=== PATIENT | male | born 1970 | race Caucasian/White ===

== ENCOUNTER 2020-11-19 07:28 | Outpatient (CLI) | payer BC ==
[2020-11-19 15:29] LABS: INR 1.1 (0.8-1.2); PT - PROTHROMBIN TIME 12.1 secs (9.9-12.6)
== END 2020-11-19 07:29 | disposition home or self-care (01) ==
LOC: LAB.S 07:28
PROVIDERS: ATTEND Internal Medicine
DX: I25.118 Atherosclerotic heart disease of native coronary artery with other forms of angina pectoris (principal); R94.39 Abnormal result of other cardiovascular function study; I63.9 Cerebral infarction, unspecified; Q21.1 Atrial septal defect; I10 Essential (primary) hypertension
CPT/HCPCS: 36415; 85610

== ENCOUNTER 2021-05-04 08:00 | Outpatient (CLI) | payer BC ==
--- NOTE | 2021-05-04 14:27 | XRAY Report ---
PROCEDURE: Chest 2 View X-Ray INDICATIONS: COUGH TECHNIQUE: 2 view(s) of the chest. COMPARISON: None. FINDINGS: Surgical changes and devices: An apparent cardiac closure device is partially seen. Lungs and pleura: An incomplete inspiratory result is noted, with low lung volumes and crowding of t he vascular markings. No focal infiltrates are seen. No large pneumothorax or large pleural effusion can be seen. Mediastinum: Mediastinal contours are normal. Heart size is normal. Bones and chest wall: No suspicious bony abnormalities. Age-appropriate degenerative changes are see n. There is accentuated thoracic kyphosis. Soft tissues appear unremarkable. IMPRESSION: Low lung volumes, without a focal infiltrate seen. Reviewed by: Ted Euceda MD on 05/04/2021 1:26 PM [facility] Approved by: Ted Euceda MD on 05/04/2021 1:26 PM [facility] Station ID: [id number]
== END 2021-05-04 23:59 | disposition home or self-care (01) ==
LOC: DI.S 08:00
PROVIDERS: ATTEND Physician Assistant Medical
DX: R05 Cough (principal); Z20.822 Contact with and (suspected) exposure to COVID-19

== ENCOUNTER 2021-07-19 11:59 | Emergency (ER) | payer BC ==
[2021-07-19 12:41] LABS: BASOPHILS % (AUTO) 0.2 %; EOSINOPHILS % (AUTO) 0.2 %; HCT - HEMATOCRIT 42.8 % (42.0-52.0); HGB - HEMOGLOBIN 14.3 g/dL (14.0-18.0); LYMPHOCYTES # (AUTO) 2.1 10^3/uL (1.5-3.5); LYMPHOCYTES % (AUTO) 20.4 %; MEAN CORPUSCULAR HEMOGLOBIN 29.4 pg (27.0-31.0); MEAN CORPUSCULAR HGB CONC 33.4 g/dL (32.0-36.0); MEAN CORPUSCULAR VOLUME 87.9 fL (80.0-94.0); MEAN PLATELET VOLUME 10.4 fL (7.4-11.4); MONOCYTES # (AUTO) 0.7 10^3/uL (0.0-1.0); MONOCYTES % (AUTO) 7.4 %; NEUTROPHILS # (AUTO) 7.2 10^3/uL (1.5-6.6); NEUTROPHILS % (AUTO) 71.5 %; PLT - PLATELET COUNT 282 10^3/uL (130-450); RED BLOOD COUNT 4.87 10^6/uL (4.70-6.10); RED CELL DISTRIBUTION WIDTH 12.1 % (12.0-15.0); WHITE BLOOD COUNT 10.1 x10^3/uL (4.8-10.8)
--- NOTE | 2021-07-19 12:47 | XRAY Report ---
PROCEDURE: Chest 1 View X-Ray INDICATIONS: Chest pain TECHNIQUE: One view of the chest was acquired. COMPARISON: 05/04/2021 FINDINGS: Surgical changes and devices: None. Lungs and pleura: No pleural effusions or pneumothorax. Lungs are clear. Mediastinum: Mediastinal contours appear normal. Heart size is normal. Bones and chest wall: No suspicious bony lesions. Overlying soft tissues appear unremarkable. IMPRESSION: Portable chest within normal limits for age. Reviewed by: Ted Euceda MD on 07/19/2021 11:45 AM [facility] Approved by: Ted Euceda MD on 07/19/2021 11:45 AM [facility] Station ID: [id number]
[2021-07-19 13:03] LABS: ALBUMIN 4.7 g/dL (3.2-5.5); ALBUMIN/GLOBULIN RATIO 1.6 (1.0-2.2); BILIRUBIN,TOTAL 0.4 mg/dL (0.2-1.0); CALCIUM 9.5 mg/dL (8.5-10.3); CREATININE 1.1 mg/dL (0.6-1.2); POTASSIUM 4.2 mmol/L (3.5-5.0); TOTAL PROTEIN 7.6 g/dL (6.7-8.2)
--- NOTE | 2021-07-19 13:11 | ED Physician Documentation ---
History of Present Illness - Stated complaint Stated Complaint: CHEST PX/VOMITING - Chief complaint Chief Complaint: Cardiac - Additonal information Additional information: 51-year-old male who has a past medical history most significant for hypertension and coronary artery disease status post stenting x5 presents to the emergency department for evaluation of chest pain nausea and vomiting. He last had cardiac stents placed in November [address] Bernal at [facility]. This gentleman reports that for the last 3 to 4 weeks he has had dyspnea on exertion as well as some occasional nausea. This morning he was trying to when arise a boat motor and developed chest pain after pulling multiple times to attempt to start the motor. He then vomited. Thus he presents to the emergency department. He reports the chest pain as a pressure-like sensation that radiates to his back between the shoulder blades. He does have follow-up scheduled with Dr. Akers 07/25/21 Patient is free of chest pain at this time. He did not take nitroglycerin prior to arrival. Meds: Plavix, aspirin, metoprolol, losartan, atorvastatin, as needed nitroglycerin. Review of Systems Constitutional: denies: Fever, Chills Eyes: reports: Reviewed and negative Nose: reports: Reviewed and negative Throat: reports: Reviewed and negative Cardiac: reports: Chest pain / pressure. denies: Palpitations, Pedal edema, Calf pain Respiratory: reports: Dyspnea. denies: Cough, Hemoptysis, Wheezing GI: reports: Reviewed and negative : reports: Reviewed and negative Skin: reports: Reviewed and negative Musculoskeletal: reports: Reviewed and negative PD PAST MEDICAL HISTORY - Past Medical History Past Medical History: Yes Cardiovascular: Hypertension, High cholesterol, Coronary artery disease Respiratory: None Neuro: CVA Endocrine/Autoimmune: Other GI: None : None HEENT: None Psych: Depression Musculoskeletal: None Derm: None Other Past Medical History: Lyme disease. Pre diabetic - Past Surgical History Past Surgical History: Yes Ortho: Other Cardiovascular: Coronary stent - Present Medications Home Medications: Ambulatory Orders Medication Instructions Recorded Confirmed Aspirin [[place] Aspirin] 81 mg PO DAILY 07/19/21 07/19/21 Atorvastatin Calcium [Lipitor] 80 mg PO DAILY PM 07/19/21 07/19/21 Clopidogrel [Plavix] 75 mg PO DAILY 07/19/21 07/19/21 Fluoxetine HCl [Prozac] 40 mg PO DAILY 07/19/21 07/19/21 Losartan [Cozaar] 25 mg PO DAILY PM 07/19/21 07/19/21 Losartan [Cozaar] 50 mg PO DAILY 07/19/21 07/19/21 Metoprolol Succinate [Toprol Xl] 0.5 tab PO DAILY 07/19/21 07/19/21 Nitroglycerin [Nitrostat] 0.4 mg SL Q5MIN PRN 07/19/21 07/19/21 Pantoprazole [Protonix] 40 mg PO DAILY 07/19/21 07/19/21 amLODIPine [Norvasc] 2.5 mg PO DAILY 07/19/21 07/19/21 - Allergies Allergies/Adverse Reactions: Allergies Allergy/AdvReac Type Severity Reaction Status Date / Time No Known Drug Allergies Allergy Verified 07/19/21 12:13 - Social History Does the pt smoke?: No Smoking Status: Never smoker Does the pt drink ETOH?: Yes ETOH Use: Liquor Does the pt have substance abuse?: No - Immunizations Immunizations are current?: Yes PD ED PE NORMAL - General General: Alert and oriented X 3, No acute distress - HEENT HEENT: PERRL - Neck Neck: Supple, no meningeal sign - Cardiac Cardiac: RRR, No murmur, No gallop - Respiratory Respiratory: No respiratory distress, Clear bilaterally - Abdomen Abdomen: Normal bowel sounds, Soft, Non tender - Back Back: No CVA TTP - Derm Derm: Normal color, Warm and dry, No rash - Extremities Extremities: No deformity - Neuro Neuro: Alert and oriented X 3 Results - Vitals Vitals: Vital Signs - 24 hr 07/19/21 07/19/21 07/19/21 12:13 12:36 13:00 Temperature 36.5 C Heart Rate 71 64 67 Respiratory 16 18 15 Rate Blood Pressure 143/86 H 141/93 H 139/86 H O2 Saturation 100 100 99 07/19/21 07/19/21 07/19/21 13:30 13:37 14:00 Temperature Heart Rate 62 66 66 Respiratory 24 20 14 Rate Blood Pressure 142/77 H 142/71 H 150/94 H O2 Saturation 100 100 100 07/19/21 07/19/21 07/19/21 14:30 15:00 15:30 Temperature Heart Rate 70 68 65 Respiratory 15 16 17 Rate Blood Pressure 143/82 H 139/89 H 141/91 H O2 Saturation 100 99 100 07/19/21 07/19/21 07/19/21 16:00 16:30 16:45 Temperature Heart Rate 63 62 Respiratory 12 13 Rate Blood Pressure 144/103 H 156/96 H 131/82 H O2 Saturation 100 100 Oxygen O2 Source Room air - EKG (time done) 1208 Rate: Rate (enter#) (68) Rhythm: NSR [place]: Normal Intervals: Normal [place] QRS: Normal Ischemia: Normal ST segments Compare to prior EKG: Old EKG unavailable Computer interpretation: Agree with computer - Labs Labs: Laboratory Tests 07/19/21 07/19/21 07/19/21 12:35 12:35 12:35 WBC 10.1 RBC 4.87 Hgb 14.3 Hct 42.8 MCV 87.9 MCH 29.4 MCHC 33.4 RDW 12.1 Plt Count 282 MPV 10.4 Neut # (Auto) 7.2 H Lymph # (Auto) 2.1 [place] # (Auto) 0.7 Eos # (Auto) 0.0 Baso # (Auto) 0.0 Absolute Nucleated RBC 0.00 Nucleated RBC % 0.0 Sodium 142 Potassium 4.2 Chloride 107 Carbon Dioxide 24 Anion Gap 11.0 BUN 15 Creatinine 1.1 Estimated GFR (MDRD) 70 L Glucose 130 H Calcium 9.5 Total Bilirubin 0.4 AST 37 ALT 60 Alkaline Phosphatase 94 Troponin I High Sens 142.3 H* Total Protein 7.6 Albumin 4.7 Globulin 2.9 Albumin/Globulin Ratio 1.6 Lipase 51 Nasal Adenovirus (PCR) Nasal B. parapertussis DNA (PCR) Nasal Coronavir 229E PCR Nasal Coronavir HKU1 PCR Nasal Coronavir NL63 PCR Nasal Coronavir OC43 PCR Nasal Enterovir/Rhinovir PCR Nasal Influenza B PCR Nasal Influenza A PCR Nasal Parainfluen 1 PCR Nasal Parainfluen 2 PCR Nasal Parainfluen 3 PCR Nasal Parainfluen 4 PCR Nasal RSV (PCR) Nasal B.pertussis DNA PCR Nasal C.pneumoniae (PCR) José Miguel Human Metapneumo PCR Nasal M.pneumoniae (PCR) Nasal SARS-CoV-2 (PCR) 07/19/21 07/19/21 15:13 16:05 WBC RBC Hgb Hct MCV MCH MCHC RDW Plt Count MPV Neut # (Auto) Lymph # (Auto) [place] # (Auto) Eos # (Auto) Baso # (Auto) Absolute Nucleated RBC Nucleated RBC % Sodium Potassium Chloride Carbon Dioxide Anion Gap BUN Creatinine Estimated GFR (MDRD) Glucose Calcium Total Bilirubin AST ALT Alkaline Phosphatase Troponin I High Sens 903.2 H* Total Protein Albumin Globulin Albumin/Globulin Ratio Lipase Nasal Adenovirus (PCR) NOT DETECTED Nasal B. parapertussis DNA (PCR) NOT DETECTED Nasal Coronavir 229E PCR NOT DETECTED Nasal Coronavir HKU1 PCR NOT DETECTED Nasal Coronavir NL63 PCR NOT DETECTED Nasal Coronavir OC43 PCR NOT DETECTED Nasal Enterovir/Rhinovir PCR NOT DETECTED Nasal Influenza B PCR NOT DETECTED Nasal Influenza A PCR NOT DETECTED Nasal Parainfluen 1 PCR NOT DETECTED Nasal Parainfluen 2 PCR NOT DETECTED Nasal Parainfluen 3 PCR NOT DETECTED Nasal Parainfluen 4 PCR NOT DETECTED Nasal RSV (PCR) NOT DETECTED Nasal B.pertussis DNA PCR NOT DETECTED Nasal C.pneumoniae (PCR) NOT DETECTED José Miguel Human Metapneumo PCR NOT DETECTED Nasal M.pneumoniae (PCR) NOT DETECTED Nasal SARS-CoV-2 (PCR) NOT DETECTED PD MEDICAL DECISION MAKING - ED course Complexity details: reviewed results, re-evaluated patient, d/w patient, d/w continuous improvement consultant (Kiko) ED course: 51-year-old male who has a history of coronary artery disease status post stenting x5 presents emergency department for evaluation of chest pain. Screening EKG is sinus rhythm without ischemic changes however initial high- sensitivity troponin elevated at 142. Patient was started on a heparin infusion. 1415 I was able to speak with the on-call dynamics ax consultant Dr. Hoover at [facility] who agrees that the patient should be transferred emergently for further evaluation of his NSTEMI. Likely will require coronary artery angiography. He requested the patient remain on a heparin infusion as well as his statin. Request blood pressure control for goal under 140. Labetalol has been ordered. 1600: Repeat troponin > 900. I have spoken with Dr. Ramos who has accepted the pt for further evaluation of his NSTEMI. Pt remains hemodynamically stable on heparin. No chest pain at present. BP well controlled. COBRA paperwork filled out. Patient will be transported via ALS. Patient has been updated to plan of care. Departure - Departure Disposition: 02 Transfer Acute Care Hosp Clinical Impression: NSTEMI (non-ST elevated myocardial infarction), Unstable angina
[2021-07-19] MEDS ORDERED: HEPARIN 25000UNITS/500ML (D5W) 25,000 UNIT/500 ML BAG IV SCH (14:00)
[2021-07-19] MEDS ORDERED: LABETALOL 20 MG/4 ML SYRINGE IVP STA ×2 (14:25→16:38)
[2021-07-19] MEDS ORDERED: NITROGLYCERIN SL 0.4 MG TABLET SL STA (16:30)
[2021-07-19 16:56] LABS: B. PARAPERTUSSIS- RESP PCR PAN NOT DETECTED; B. PERTUSSIS- RESP PCR PANEL NOT DETECTED; C. PNEUMONIAE- RESP PCR PANEL NOT DETECTED; CORONAVIRUS 229E-RESP PCR NOT DETECTED; CORONAVIRUS HKU1-RESP PCR NOT DETECTED; CORONAVIRUS NL63-RESP PCR NOT DETECTED; CORONAVIRUS OC43-RESP PCR NOT DETECTED; HUMAN METAPNEUMOVIRUS NOT DETECTED; INFLUENZA A- RESP PCR PANEL NOT DETECTED; INFLUENZA B - RESP PCR PANEL NOT DETECTED; M. PNEUMONIAE- RESP PCR PANEL NOT DETECTED; PARAINFLUENZA VIRUS 1 NOT DETECTED; PARAINFLUENZA VIRUS 2 NOT DETECTED; PARAINFLUENZA VIRUS 3 NOT DETECTED; PARAINFLUENZA VIRUS 4 NOT DETECTED; RHINOVIRUS/ENTEROVIRUS NOT DETECTED; RSV- RESP PCR PANEL NOT DETECTED; SARS-CoV-2 -RESP PCR PANEL NOT DETECTED
[2021-07-19 17:07] VITALS: BP 146/95
== END 2021-07-19 17:13 | disposition short-term general hospital (02) ==
LOC: ED 11:59
DX: I21.4 Non-ST elevation (NSTEMI) myocardial infarction (principal); I25.110 Atherosclerotic heart disease of native coronary artery with unstable angina pectoris; Z95.5 Presence of coronary angioplasty implant and graft; I10 Essential (primary) hypertension; Z20.822 Contact with and (suspected) exposure to COVID-19; Z79.02 Long term (current) use of antithrombotics/antiplatelets; Z79.82 Long term (current) use of aspirin
CPT/HCPCS: 0202U; 36415; 71045; 80053; 83690; 84484; 85025; 93005; 96365; 96366; 96375; 96376; 99284; 99285; A9270

== ENCOUNTER 2021-07-19 17:01 | Outpatient (CLI) | payer BC | END 2021-07-19 17:02 | disposition short-term general hospital (02) | LOC: EMS 17:01 | PROVIDERS: ATTEND Radiology Diagnostic Radiology | DX: I21.4 Non-ST elevation (NSTEMI) myocardial infarction (principal); I10 Essential (primary) hypertension; I25.10 Atherosclerotic heart disease of native coronary artery without angina pectoris | CPT/HCPCS: A0425; A0426 ==

== ENCOUNTER 2021-09-24 11:21 | Outpatient (CLI) | payer BC ==
[2021-09-24 14:49] LABS: BASOPHILS % (AUTO) 0.3 %; EOSINOPHILS # (AUTO) 0.2 10^3/uL (0.0-0.7); EOSINOPHILS % (AUTO) 2.7 %; HCT - HEMATOCRIT 29.7 % (42.0-52.0); HGB - HEMOGLOBIN 9.2 g/dL (14.0-18.0); LYMPHOCYTES % (AUTO) 26.7 %; MEAN CORPUSCULAR HEMOGLOBIN 27.9 pg (27.0-31.0); MEAN PLATELET VOLUME 10.8 fL (7.4-11.4); MONOCYTES # (AUTO) 0.7 10^3/uL (0.0-1.0); MONOCYTES % (AUTO) 8.8 %; NEUTROPHILS # (AUTO) 4.6 10^3/uL (1.5-6.6); NEUTROPHILS % (AUTO) 61.1 %; PLT - PLATELET COUNT 344 10^3/uL (130-450); RED CELL DISTRIBUTION WIDTH 13.4 % (12.0-15.0); WHITE BLOOD COUNT 7.5 x10^3/uL (4.8-10.8)
[2021-09-24 15:22] LABS: ALBUMIN 3.8 g/dL (3.2-5.5); ALBUMIN/GLOBULIN RATIO 1.3 (1.0-2.2); BILIRUBIN,TOTAL 0.3 mg/dL (0.2-1.0); CALCIUM 8.7 mg/dL (8.5-10.3); CREATININE 1.1 mg/dL (0.6-1.2); POTASSIUM 4.2 mmol/L (3.5-5.0); TOTAL PROTEIN 6.8 g/dL (6.7-8.2)
== END 2021-09-24 11:22 | disposition home or self-care (01) ==
LOC: LAB.S 11:21
PROVIDERS: ATTEND Physician Assistant
DX: K92.2 Gastrointestinal hemorrhage, unspecified (principal)
CPT/HCPCS: 36415; 80053; 82728; 83540; 84466; 85025

== ENCOUNTER 2021-10-22 19:29 | Emergency (ER) | payer BC ==
[2021-10-22] MEDS ORDERED: ASPIRIN CHEW 81 MG TABLET PO STA (19:49)
[2021-10-22 19:52] LABS: BASOPHILS % (AUTO) 0.2 %; HCT - HEMATOCRIT 38.9 % (42.0-52.0); HGB - HEMOGLOBIN 12.3 g/dL (14.0-18.0); LYMPHOCYTES # (AUTO) 1.8 10^3/uL (1.5-3.5); LYMPHOCYTES % (AUTO) 14.7 %; MEAN CORPUSCULAR HEMOGLOBIN 25.7 pg (27.0-31.0); MEAN CORPUSCULAR HGB CONC 31.6 g/dL (32.0-36.0); MEAN CORPUSCULAR VOLUME 81.2 fL (80.0-94.0); MEAN PLATELET VOLUME 9.7 fL (7.4-11.4); MONOCYTES # (AUTO) 0.9 10^3/uL (0.0-1.0); MONOCYTES % (AUTO) 7.2 %; NEUTROPHILS # (AUTO) 9.5 10^3/uL (1.5-6.6); NEUTROPHILS % (AUTO) 77.6 %; PLT - PLATELET COUNT 415 10^3/uL (130-450); RED BLOOD COUNT 4.79 10^6/uL (4.70-6.10); RED CELL DISTRIBUTION WIDTH 13.2 % (12.0-15.0); WHITE BLOOD COUNT 12.3 x10^3/uL (4.8-10.8)
--- NOTE | 2021-10-22 19:52 | ED Physician Documentation ---
History of Present Illness - Stated complaint Stated Complaint: CP/VOMIT - Chief complaint Chief Complaint: Cardiac - History obtained from History obtained from: Patient - Additonal information Additional information: 51-year-old man with past medical history of coronary artery bypass graft, stents most recent July 2021, also with postoperative paroxysmal A. fib on xarelto, complicated by GI bleed with admission to [facility] September 11 to , not currently on AC, p/w sudden onset 5/10 crushing substernal CP a/w about 20 episodes of nbnb n/v today at 1700. patient called his vending machine attendant Dr. Akers who told him to come to ED. Note patient was seen by Dr. Akers this Wednesday and metoprolol was lowered from 50bid to 25/50 because he had been having nausea and malaise for the past few weeks. patient endorsing 1/10 chest discomfort at present. nausea resolved. denies soa, dizziness, back pain, cough, fever, diaphoresis. Review of Systems Ten Systems: 10 systems reviewed and negative Constitutional: denies: Fever, Chills Throat: denies: Sore throat Cardiac: reports: Chest pain / pressure, Palpitations Respiratory: reports: Dyspnea. denies: Cough GI: reports: Nausea, Vomiting PD PAST MEDICAL HISTORY - Past Medical History Cardiovascular: Hypertension, High cholesterol, Coronary artery disease Respiratory: None Neuro: CVA Endocrine/Autoimmune: Other GI: None : None HEENT: None Psych: Depression Musculoskeletal: None Derm: None - Past Surgical History Past Surgical History: Yes Ortho: Other Cardiovascular: Coronary stent - Present Medications Home Medications: Ambulatory Orders Medication Instructions Recorded Confirmed Aspirin [[place] Aspirin] 81 mg PO DAILY 07/19/21 07/19/21 Atorvastatin Calcium [Lipitor] 80 mg PO DAILY PM 07/19/21 07/19/21 Clopidogrel [Plavix] 75 mg PO DAILY 07/19/21 07/19/21 Fluoxetine HCl [Prozac] 40 mg PO DAILY 07/19/21 07/19/21 Losartan [Cozaar] 25 mg PO DAILY PM 07/19/21 07/19/21 Losartan [Cozaar] 50 mg PO DAILY 07/19/21 07/19/21 Metoprolol Succinate [Toprol Xl] 0.5 tab PO DAILY 07/19/21 07/19/21 Nitroglycerin [Nitrostat] 0.4 mg SL Q5MIN PRN 07/19/21 07/19/21 Pantoprazole [Protonix] 40 mg PO DAILY 07/19/21 07/19/21 amLODIPine [Norvasc] 2.5 mg PO DAILY 07/19/21 07/19/21 - Allergies Allergies/Adverse Reactions: Allergies Allergy/AdvReac Type Severity Reaction Status Date / Time No Known Drug Allergies Allergy Verified 10/22/21 19:33 - Social History Does the pt smoke?: No Smoking Status: Never smoker Does the pt drink ETOH?: Yes Does the pt have substance abuse?: No - Immunizations Immunizations are current?: Yes PD ED PE NORMAL - Vitals Vital signs reviewed: Yes - General General: Alert and oriented X 3, No acute distress, Well developed/nourished - HEENT HEENT: Atraumatic, PERRL, EOMI - Neck Neck: Supple, no meningeal sign - Cardiac Cardiac: RRR - Respiratory Respiratory: No respiratory distress, Clear bilaterally - Abdomen Abdomen: Non tender, Non distended - Back Back: No CVA TTP - Derm Derm: Normal color, Warm and dry - Extremities Extremities: No deformity, No edema - Neuro Neuro: Alert and oriented X 3, No motor deficit, No sensory deficit - Psych Psych: Normal mood, Normal affect Results - Vitals Vitals: Vital Signs - 24 hr 10/22/21 10/22/21 10/22/21 19:33 19:44 20:22 Temperature 36.5 C Heart Rate 75 110 H 73 Respiratory 16 17 12 Rate Blood Pressure 119/73 151/71 H 136/84 H O2 Saturation 100 100 99 10/22/21 10/22/21 10/22/21 20:30 21:30 22:00 Temperature Heart Rate 69 69 61 Respiratory 18 16 16 Rate Blood Pressure 136/84 H 118/65 109/76 O2 Saturation 99 98 98 10/22/21 10/22/21 10/22/21 22:48 23:07 23:39 Temperature Heart Rate 57 L 63 59 L Respiratory 11 L 10 L 16 Rate Blood Pressure 113/71 118/70 122/77 O2 Saturation 98 97 97 10/23/21 10/23/21 10/23/21 00:14 00:39 01:12 Temperature Heart Rate 57 L 56 L 67 Respiratory 20 12 12 Rate Blood Pressure 109/74 O2 Saturation 97 96 97 10/23/21 10/23/21 10/23/21 01:28 01:31 01:46 Temperature Heart Rate 57 L 55 L 55 L Respiratory 16 12 14 Rate Blood Pressure 121/68 107/68 112/64 O2 Saturation 97 97 97 10/23/21 10/23/21 02:02 02:39 Temperature Heart Rate 52 L 54 L Respiratory 14 14 Rate Blood Pressure 118/73 110/63 O2 Saturation 96 98 Oxygen O2 Source Room air - EKG (time done) 1929 Rate: Rate (enter#) (67) Rhythm: NSR Intervals: Normal [place] QRS: Normal Ischemia: Other (minimal criteria for STD in v4-v6 with minimal HIRAL in aVR and lead III) 1955 Rate: Rate (enter#) (114) Rhythm: Atrial fibrillation Ischemia: Other (<2mm STD in leads v2-v6. ) 2012 Rate: Rate (enter#) (67) Rhythm: NSR Ischemia: Other (persistent STD in v2-v6 <2mm. minimal HIRAL lead III unchanged from first ekg) - Labs Labs: Laboratory Tests 10/22/21 10/22/21 10/22/21 00:03 19:45 19:45 WBC 12.3 H RBC 4.79 Hgb 12.3 L Hct 38.9 L MCV 81.2 MCH 25.7 L MCHC 31.6 L RDW 13.2 Plt Count 415 MPV 9.7 Neut # (Auto) 9.5 H Lymph # (Auto) 1.8 [place] # (Auto) 0.9 Eos # (Auto) 0.0 Baso # (Auto) 0.0 Absolute Nucleated RBC 0.00 Nucleated RBC % 0.0 PT INR APTT Sodium 139 Potassium 3.7 Chloride 101 Carbon Dioxide 25 Anion Gap 13.0 BUN 21 H Creatinine 1.3 H Estimated GFR (MDRD) 58 L Glucose 128 H Calcium 9.5 Total Bilirubin 0.4 AST 24 ALT 31 Alkaline Phosphatase 125 H Troponin I High Sens 1518.8 H* Total Protein 7.8 Albumin 4.1 Globulin 3.7 Albumin/Globulin Ratio 1.1 Lipase 41 Nasal Adenovirus (PCR) Nasal B. parapertussis DNA (PCR) Nasal Coronavir 229E PCR Nasal Coronavir HKU1 PCR Nasal Coronavir NL63 PCR Nasal Coronavir OC43 PCR Nasal Enterovir/Rhinovir PCR Nasal Influenza B PCR Nasal Influenza A PCR Nasal Parainfluen 1 PCR Nasal Parainfluen 2 PCR Nasal Parainfluen 3 PCR Nasal Parainfluen 4 PCR Nasal RSV (PCR) Nasal B.pertussis DNA PCR Nasal C.pneumoniae (PCR) José [place] Human Metapneumo PCR Nasal M.pneumoniae (PCR) Nasal SARS-CoV-2 (PCR) 10/22/21 10/22/21 10/22/21 19:45 19:45 20:19 WBC RBC Hgb Hct MCV MCH MCHC RDW Plt Count MPV Neut # (Auto) Lymph # (Auto) [place] # (Auto) Eos # (Auto) Baso # (Auto) Absolute Nucleated RBC Nucleated RBC % PT 11.4 INR 1.0 APTT 31.8 Sodium Potassium Chloride Carbon Dioxide Anion Gap BUN Creatinine Estimated GFR (MDRD) Glucose Calcium Total Bilirubin AST ALT Alkaline Phosphatase Troponin I High Sens 411.8 H* Total Protein Albumin Globulin Albumin/Globulin Ratio Lipase Nasal Adenovirus (PCR) NOT DETECTED Nasal B. parapertussis DNA (PCR) NOT DETECTED Nasal Coronavir 229E PCR NOT DETECTED Nasal Coronavir HKU1 PCR NOT DETECTED Nasal Coronavir NL63 PCR NOT DETECTED Nasal Coronavir OC43 PCR NOT DETECTED Nasal Enterovir/Rhinovir PCR NOT DETECTED Nasal Influenza B PCR NOT DETECTED Nasal Influenza A PCR NOT DETECTED Nasal Parainfluen 1 PCR NOT DETECTED Nasal Parainfluen 2 PCR NOT DETECTED Nasal Parainfluen 3 PCR NOT DETECTED Nasal Parainfluen 4 PCR NOT DETECTED Nasal RSV (PCR) NOT DETECTED Nasal B.pertussis DNA PCR NOT DETECTED Nasal C.pneumoniae (PCR) NOT DETECTED José Miguel Human Metapneumo PCR NOT DETECTED Nasal M.pneumoniae (PCR) NOT DETECTED Nasal SARS-CoV-2 (PCR) NOT DETECTED 10/22/21 21:48 WBC RBC Hgb Hct MCV MCH MCHC RDW Plt Count MPV Neut # (Auto) Lymph # (Auto) [place] # (Auto) Eos # (Auto) Baso # (Auto) Absolute Nucleated RBC Nucleated RBC % PT INR APTT Sodium Potassium Chloride Carbon Dioxide Anion Gap BUN Creatinine Estimated GFR (MDRD) Glucose Calcium Total Bilirubin AST ALT Alkaline Phosphatase Troponin I High Sens 1129.8 H* Total Protein Albumin Globulin Albumin/Globulin Ratio Lipase Nasal Adenovirus (PCR) Nasal B. parapertussis DNA (PCR) Nasal Coronavir 229E PCR Nasal Coronavir HKU1 PCR Nasal Coronavir NL63 PCR Nasal Coronavir OC43 PCR Nasal Enterovir/Rhinovir PCR Nasal Influenza B PCR Nasal Influenza A PCR Nasal Parainfluen 1 PCR Nasal Parainfluen 2 PCR Nasal Parainfluen 3 PCR Nasal Parainfluen 4 PCR Nasal RSV (PCR) Nasal B.pertussis DNA PCR Nasal C.pneumoniae (PCR) José [place] Human Metapneumo PCR Nasal M.pneumoniae (PCR) Nasal SARS-CoV-2 (PCR) PD MEDICAL DECISION MAKING - ED course ED course: 8pm - spoke on the phone with Dr. Akers, patient's personal vending machine attendant regarding concerning history and minimal HIRAL in lead 3 and avR on initial ekg with 1mm STD in V4-v6. sent him the ekgs. he recommended IV metoprolol but then advised to hold off as we were about to give it since patient reverted to NSR. 8:30pm- troponin elevated to 400. d/w vending machine attendant Dr. Akers and sent him all three ekgs as well as prior ekg from July 2021. He states no STEMI but patient should be transferred to hospital with cath capabilities for urgent, not emergent cath. I d/w him and with the patient that due to critical staff shortages/pandemic/covid issues we have had severe issues with transfer. Our [facility] will start to initiate phone calls, starting with [facility] and [facility]. 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 Dr. Akers recommending heparin drip but to hold plavix given recent history of GIB. 8:45pm - d/w patient to update and he is very concerned with idea of transfer to [facility], stating he may refuse transfer given previous poor experience. We discussed that they may have a bed available first thing in the morning and his condition is quite serious and requires urgent transfer. Also discussed that given the pandemic the transfer times for patients have been very prolonged. [facility] is aware and has been calling other hospitals. [facility] declined due to over capacity but stated he can go on outpatient waitlist for cath. [facility] will call other hospitals. d/w transfer center. they are on critical census protocol. [facility] currently has no beds. if patient has urgent need that is only able to be addressed at [facility] they can have me speak with a doctor but full disclosure it will be several days before we can speak with a doctor given that he has no prior connection to [facility]. [facility], [facility], [facility], and [facility] also refusing transfers. 9:30pm - updated patient about transfer situation and he is more open to possible transfer to [facility]. Our CRYPTOGRAPHIC TECHNICIAN is contacting [facility] pending 2nd troponin. 10:30pm - patient with uptrending troponins. d/w [facility] who will assist in coordinating transfers. they are telling us the entire system is shut down. 2am - patient with multiple bradycardic episodes lasting less than a minute at a time dipping down to low 30s, followed by afib RVR in 110s lasting 1-2 minutes then reverting to NSR in 60s. reviewed monitor event rhythm strips and they appear to be sinus bradycardia but we are having trouble getting an ekg since episodes are so quick. patient is asymptomatic, resting comfortably in bed with normal blood pressure during these episodes. d/w vending machine attendant Dr. Akers who is aware. 2:30am - d/w ED physician at [facility] Dr. Nice who accepts patient in transfer. will transfer via life flight. Departure - Departure Disposition: 02 Transfer Acute Care Hosp Clinical Impression: NSTEMI (non-ST elevated myocardial infarction), Elevated troponin, Nausea and vomiting, Paroxysmal A-fib Condition: Stable
[2021-10-22] MEDS ORDERED: METOPROLOL 5 MG/5 ML VIAL IVP STA (20:06)
--- NOTE | 2021-10-22 20:06 | XRAY Report ---
PROCEDURE: Chest 1 View X-Ray INDICATIONS: Chest pain TECHNIQUE: One view of the chest was acquired. COMPARISON: July 19, 2021 FINDINGS: SUPPORT DEVICES: Sternotomy wires are well aligned. LUNGS/PLEURA: No focal consolidation, pleural effusion or space-occupying pneumothorax. MEDIASTINUM: The cardiac silhouette is upper limits of normal. BONES/SOFT TISSUES: No acute abnormality. IMPRESSION: 1.No acute cardiopulmonary abnormality. Reviewed by: Pascual Vega MD on 10/22/2021 8:05 PM [facility] Approved by: Pascual Vega MD on 10/22/2021 8:05 PM [facility] Station ID: [id number]
[2021-10-22 20:09] LABS: ALBUMIN 4.1 g/dL (3.2-5.5); ALBUMIN/GLOBULIN RATIO 1.1 (1.0-2.2); BILIRUBIN,TOTAL 0.4 mg/dL (0.2-1.0); CALCIUM 9.5 mg/dL (8.5-10.3); CREATININE 1.3 mg/dL (0.6-1.2); POTASSIUM 3.7 mmol/L (3.5-5.0); TOTAL PROTEIN 7.8 g/dL (6.7-8.2)
[2021-10-22] MEDS ORDERED: PANTOPRAZOLE 40 MG VIAL IV STA (20:18)
[2021-10-22 20:51] LABS: PT - PROTHROMBIN TIME 11.4 secs (9.9-12.6)
[2021-10-22 20:58] LABS: PARTIAL THROMBOPLASTIN TIME 31.8 secs (24.9-33.3)
[2021-10-22] MEDS ORDERED: HEPARIN 25000UNITS/500ML (D5W) 25,000 UNIT/500 ML BAG IV SCH (21:00)
[2021-10-22 21:32] LABS: B. PARAPERTUSSIS- RESP PCR PAN NOT DETECTED; B. PERTUSSIS- RESP PCR PANEL NOT DETECTED; C. PNEUMONIAE- RESP PCR PANEL NOT DETECTED; CORONAVIRUS 229E-RESP PCR NOT DETECTED; CORONAVIRUS HKU1-RESP PCR NOT DETECTED; CORONAVIRUS NL63-RESP PCR NOT DETECTED; CORONAVIRUS OC43-RESP PCR NOT DETECTED; HUMAN METAPNEUMOVIRUS NOT DETECTED; INFLUENZA A- RESP PCR PANEL NOT DETECTED; INFLUENZA B - RESP PCR PANEL NOT DETECTED; M. PNEUMONIAE- RESP PCR PANEL NOT DETECTED; PARAINFLUENZA VIRUS 1 NOT DETECTED; PARAINFLUENZA VIRUS 2 NOT DETECTED; PARAINFLUENZA VIRUS 3 NOT DETECTED; PARAINFLUENZA VIRUS 4 NOT DETECTED; RHINOVIRUS/ENTEROVIRUS NOT DETECTED; RSV- RESP PCR PANEL NOT DETECTED; SARS-CoV-2 -RESP PCR PANEL NOT DETECTED
[2021-10-23] MEDS ORDERED: NITROGLYCERIN SL 0.4 MG TABLET SL PRN (00:04)
[2021-10-23 03:03] VITALS: BP 123/73
[2021-10-23] MEDS ORDERED: PANTOPRAZOLE 40 MG TABLET PO SCH (07:00)
[2021-10-23] MEDS ORDERED: ASPIRIN 325 MG TABLET PO SCH (07:00)
[2021-10-23] MEDS ORDERED: amLODIPine 5 MG TABLET PO SCH (07:00)
[2021-10-23] MEDS ORDERED: FLUoxetine 10 MG CAPSULE PO SCH (09:00)
[2021-10-23] MEDS ORDERED: METOPROLOL SUCCINATE 25 MG TABLET PO SCH (09:00)
[2021-10-23] MEDS ORDERED: LOSARTAN 50 MG TABLET PO SCH (09:00)
[2021-10-23] MEDS ORDERED: METOPROLOL SUCCINATE 50 MG TABLET PO SCH (18:00)
== END 2021-10-23 03:33 | disposition short-term general hospital (02) ==
LOC: ED 19:29 → SUPCPDRO 19:29 → ED 10-23 03:33
DX: I21.4 Non-ST elevation (NSTEMI) myocardial infarction (principal); Z95.1 Presence of aortocoronary bypass graft; I97.190 Other postprocedural cardiac functional disturbances following cardiac surgery; Z79.01 Long term (current) use of anticoagulants; I10 Essential (primary) hypertension; Z20.822 Contact with and (suspected) exposure to COVID-19
CPT/HCPCS: 0202U; 36415; 71045; 80053; 83690; 84484; 85025; 85610; 85730; 93005; 96365; 96366; 96375; 96376; 99285; A9270; 85027

== ENCOUNTER 2022-10-21 14:18 | Outpatient (CLI) | payer BC | END 2022-10-21 14:19 | disposition home or self-care (01) | LOC: LAB 14:18 | PROVIDERS: ATTEND Internal Medicine | DX: I25.10 Atherosclerotic heart disease of native coronary artery without angina pectoris (principal); Z20.822 Contact with and (suspected) exposure to COVID-19 ==

== ENCOUNTER 2023-01-13 09:40 | Outpatient (CLI) | payer BC ==
[2023-01-13 14:45] LABS: CALCIUM 9.1 mg/dL (8.5-10.3); CREATININE 1.1 mg/dL (0.6-1.2)
[2023-01-13 14:47] LABS: POTASSIUM 4.5 mmol/L (3.5-5.0)
== END 2023-01-13 09:41 | disposition home or self-care (01) ==
LOC: LAB.S 09:40
PROVIDERS: ATTEND Internal Medicine
DX: I51.89 Other ill-defined heart diseases (principal)
CPT/HCPCS: 36415; 80048

== ENCOUNTER 2023-09-27 07:00 | Outpatient (CLI) | payer BC ==
--- NOTE | 2023-09-27 20:26 | XRAY Report ---
PROCEDURE: Elbow 3 View LT INDICATIONS: LEFT ELBOW PAIN TECHNIQUE: 3 views of the elbow were acquired. COMPARISON: None FINDINGS: Bones: No fractures or dislocations. No suspicious bony lesions. Soft tissues: No elbow joint effusion. No suspicious soft tissue calcifications. Surgical clips no yan in the anterior soft tissues IMPRESSION: Surgical clips without fracture Reviewed by: Parminder Sierra MD on 09/27/2023 7:25 PM [facility] Approved by: Parminder Sierra MD on 09/27/2023 7:25 PM [place] Station ID: [id number]
== END 2023-09-27 23:59 | disposition home or self-care (01) ==
LOC: DI.S 07:00
PROVIDERS: ATTEND Registered Nurse
DX: M25.522 Pain in left elbow (principal)

== ENCOUNTER 2024-03-25 22:46 | Emergency (ER) | payer BC ==
--- NOTE | 2024-03-25 23:44 | ED Physician Documentation ---
History of Present Illness - Stated complaint Stated Complaint: RT ARM SWOLLEN - Chief complaint Chief Complaint: Ext Problem - Additonal information Additional information: 54-year-old male with right elbow injury. [place] pop while doing some heavy lifting prior to arrival. No new medications but patient does take Eliquis in setting of heart attack and open heart surgery. Review of Systems Constitutional: denies: Fever Eyes: denies: Loss of vision Ears: denies: Loss of hearing Nose: denies: Rhinorrhea / runny nose Throat: denies: Dental pain / toothache Cardiac: denies: Chest pain / pressure Respiratory: denies: Dyspnea GI: denies: Abdominal Pain : denies: Dysuria Skin: denies: Rash Musculoskeletal: denies: Neck pain Neurologic: denies: Generalized weakness PD PAST MEDICAL HISTORY - Past Medical History Cardiovascular: Hypertension, High cholesterol, Coronary artery disease Respiratory: None Neuro: CVA Endocrine/Autoimmune: Other GI: None : None HEENT: None Psych: Depression Musculoskeletal: None Derm: None - Past Surgical History Past Surgical History: Yes Ortho: Other Cardiovascular: Coronary stent - Present Medications Home Medications: Ambulatory Orders Medication Instructions Recorded Confirmed Aspirin [[place] Aspirin] 81 mg PO DAILY 07/19/21 01/15/22 Atorvastatin Calcium [Lipitor] 80 mg PO DAILY PM 07/19/21 01/15/22 Clopidogrel [Plavix] 75 mg PO DAILY 07/19/21 01/15/22 Fluoxetine HCl [Prozac] 40 mg PO DAILY 07/19/21 01/15/22 Losartan [Cozaar] 25 mg PO DAILY PM 07/19/21 01/15/22 Losartan [Cozaar] 50 mg PO DAILY 07/19/21 01/15/22 Metoprolol Succinate [Toprol Xl] 0.5 tab PO DAILY 07/19/21 01/15/22 Nitroglycerin [Nitrostat] 0.4 mg SL Q5MIN PRN 07/19/21 01/15/22 Pantoprazole [Protonix] 40 mg PO DAILY 07/19/21 01/15/22 amLODIPine [Norvasc] 2.5 mg PO DAILY 07/19/21 01/15/22 Oxycodone HCl/Acetaminophen 1 - 2 each PO Q6H PRN #14 tablet 03/26/24 [Percocet 5-325 mg Tablet] - Allergies Allergies/Adverse Reactions: Allergies Allergy/AdvReac Type Severity Reaction Status Date / Time iodine Allergy Rash Verified 03/25/24 22:54 - Social History Does the pt smoke?: No Smoking Status: Never smoker Does the pt drink ETOH?: Yes Does the pt have substance abuse?: No - Immunizations Immunizations are current?: Yes PD ED PE NORMAL - General General: Alert and oriented X 3 - HEENT HEENT: Atraumatic - Respiratory Respiratory: No respiratory distress - Abdomen Abdomen: Normal bowel sounds - Male Male : Deferred - Rectal Rectal: Deferred - Extremities Extremities: Other (Ecchymosis To the right antecubital fossa. Pain exacerbated with flexion. Radial and ulnar pulses palpable.) Results - Vitals Vitals: Vital Signs - 24 hr 03/25/24 22:48 Temperature 36.9 C Heart Rate 64 Respiratory 18 Rate Blood Pressure 172/94 H O2 Saturation 98 Oxygen O2 Source Room air PD Medical Decision Making - ED course ED course: 54-year-old male presents with injury to the right antecubital fossa.Happened today while doing some heavy lifting. Reported felt a pop and since that time has had pain and decreased mobility at the right elbow. No other trauma. Is on blood thinners. Notable ecchymosis but palpable radial ulnar pulses distal to the site of injury with normal capillary refill. Clinical impression is most consistent with partial or complete biceps tendon tear. Patient given dose Tylenol here in the emergency department as he drove himself and it would be inappropriate to provide him with sedating medications and then discharge him. He was provided with a Percocet take-home pack. X-rays were obtained which were benign. Will provide him with a shoulder sling and have him follow-up with orthopedics. Departure - Departure Disposition: 01 Home, Self Care Clinical Impression: Biceps tendon rupture Qualifiers: Encounter type: initial encounter Laterality: right Qualified Code(s): S46.211A - Strain of muscle, fascia and tendon of other parts of biceps, right arm, initial encounter Follow-Up: Marbin Pereira MD [Provider Admit Priv/Credential] - Prescriptions: Oxycodone HCl/Acetaminophen [Percocet 5-325 mg Tablet] 1 - 2 each PO Q6H PRN #14 tablet PRN Reason: pain Comments: Thank you for allowing us to care for you today at [facility]. Today in the emergency department you are diagnosed with a biceps tendon injury. I written a prescription for medication for pain control. It was sent to [facility] in [place]. Please use this as directed. Please be aware that this medication is both sedating and habit-forming. It should not be used if you are operating a motor vehicle, using of the machinery or you are the sole tack cutter of young children. You are provided with a sling here in the emergency department. As we discussed please engage in regular range of motion exercises like those demonstrated here in the ER while using the sling. This is important for maintaining shoulder mobility. You will need follow-up with an marine specialist. I have included the contact information for Dr. Marbin Pereira in your discharge packet. Please give them a call at the earliest opportunity to arrange for follow-up. If it anytime you develop any new or worsening symptoms please not hesitate to return. Forms: PCP List
[2024-03-26] MEDS: ACETAMINOPHEN 325 MG TABLET PO STA (00:06)
[2024-03-26] MEDS: oxyCODONE/ACET 5/325 Prepack 4 PO STA (00:15)
--- NOTE | 2024-03-26 00:24 | XRAY Report ---
PROCEDURE: Elbow 3+V RT INDICATIONS: Elbow injury TECHNIQUE: 3 views of the elbow were acquired. COMPARISON: None. FINDINGS: Bones: No fractures or dislocations. No suspicious bony lesions. Soft tissues: No effusion. No suspicious soft tissue calcifications or masses. IMPRESSION: No acute bony abnormality or significant joint effusion. MR scanning provides accurate detection of ligamentous rupture, if clinically indicated. Reviewed by: Ricky Zurita MD on 03/26/2024 12:22 AM PDT Approved by: Ricky Zurita MD on 03/26/2024 12:22 AM PDT Station ID: [id number]
[2024-03-26 00:27] VITALS: BP 166/88; O2SAT 97
== END 2024-03-26 00:24 | disposition home or self-care (01) ==
LOC: ED 22:46
DX: S46.211A Strain of muscle, fascia and tendon of other parts of biceps, right arm, initial encounter (principal); X50.0XXA Overexertion from strenuous movement or load, initial encounter; Y93.89 Activity, other specified
CPT/HCPCS: 73080; 99283; 99284; A9270